=== PATIENT | female | born 1990 | race Caucasian/White ===

== ENCOUNTER 2021-11-19 23:48 | Emergency (ER) | payer SELFPAY ==
[2021-11-20 00:33] VITALS: BP 119/78; PULSE 98; TEMP 98.9; BMI 28.7
[2021-11-20] MEDS ORDERED: BISMUTH SUBSALICYLATE 524 MG/30 ML PO ONE (01:05)
[2021-11-20] MEDS ORDERED: LACTATED RINGERS SOLUTION 1000 ML INFUS.BAG IV ONE (01:06)
[2021-11-20] MEDS ORDERED: LOPERAMIDE HCL 2 MG CAPSULE PO ONE (01:06)
[2021-11-20] MEDS ORDERED: MAG HYDROX/AL HYDROX/SIMETH -MYLANTA- ORAL SUSPENSION PO ONE (01:20)
[2021-11-20] MEDS ORDERED: FAMOTIDINE 20 MG/50 ML IVPB 20 MG in PREMIX 50 IVPB ONE (01:21)
[2021-11-20] MEDS ORDERED: MAG HYDROX/AL HYDROX/SIMETH 30 ML UNIT-DOSE CUP ONE (02:20)
[2021-11-20] MEDS ORDERED: ACETAMINOPHEN 325 MG TABLET (FP) PO ONE (02:20)
[2021-11-20] MEDS ORDERED: FAMOTIDINE 20 MG/50 ML IVPB 20 MG/50 ML MG IVPB ONE (02:21)
[2021-11-20 03:07] LABS: BASO % 0.5 % (0-2.0); EOS % 0.7 % (0-4.5); HEMATOCRIT 37.8 % (32.4-45.2); HEMOGLOBIN 13.1 GM/dL (10.7-15.3); LYMPH % 19.3 % (8-40); MCH 29.8 pg (25.7-33.7); MCHC 34.8 g/dl (32.0-36.0); MEAN CELL VOLUME 85.7 fl (80-96); MEAN PLT VOLUME 7.7 fl (7.5-11.1); MONO % 6.7 % (3.8-10.2); NEUT % 72.8 % (42.8-82.8); PLATELET COUNT 305 10^3/uL (134-434); RBC 4.41 M/mm3 (3.60-5.2); RDW 13.4 % (11.6-15.6); WHITE BLOOD COUNT 7.3 K/mm3 (4.0-10.0)
[2021-11-20 03:33] LABS: CALCIUM 8.4 mg/dL (8.5-10.1)
[2021-11-20 03:34] LABS: BLOOD UREA NITROGEN 7.3 mg/dL (7-18)
[2021-11-20 03:37] LABS: CREATININE 0.7 mg/dL (0.55-1.3)
[2021-11-20 03:38] LABS: BILIRUBIN,TOTAL 0.7 mg/dL (0.2-1); TOT PROT 7.4 g/dl (6.4-8.2)
[2021-11-20] MEDS ORDERED: CALCIUM GLUCONATE 10% - 1,000 MG/10 ML VIAL IVPB ONE (03:40)
[2021-11-20] MEDS ORDERED: POTASSIUM CHLORIDE TABS 20 MEQ TABLET.ER (FP) PO ONE ×2 (03:40→05:40)
[2021-11-20] MEDS ORDERED: CALCIUM GLUCONATE 10% - 1,000 MG/10 ML VIAL ONE (05:39)
== END 2021-11-20 06:54 | disposition home or self-care (01) ==
LOC: JER 23:48
PROC: 3E033GC Introduction of Other Therapeutic Substance into Peripheral Vein, Percutaneous Approach (ICD-10-PCS; principal; 2021-11-19)
PROC: 3E033GC Introduction of Other Therapeutic Substance into Peripheral Vein, Percutaneous Approach (ICD-10-PCS; 2021-11-19)
DX: A09 Infectious gastroenteritis and colitis, unspecified (principal)
CPT/HCPCS: 36415; 80053; 85025; 99284-25

== ENCOUNTER 2022-05-03 00:33 | Emergency (ER) | payer SELFPAY ==
[2022-05-03 01:13] VITALS: BP 117/80; PULSE 86; RESP 20; TEMP 97.8; BMI 24.3
[2022-05-03] MEDS ORDERED: IBUPROFEN 400 MG TABLET (FP) PO ONE ×2 (03:07→03:11)
[2022-05-03] MEDS ORDERED: DEXAMETHASONE SOD PHOSPHATE 10 MG/1 ML VIAL IM ONE (03:08)
[2022-05-03] MEDS ORDERED: DEXAMETHASONE SOD PHOSPHATE 10 MG/1 ML VIAL ONE (03:11)
== END 2022-05-03 05:05 | disposition home or self-care (01) ==
LOC: JER 00:33
PROC: 3E0233Z Introduction of Anti-inflammatory into Muscle, Percutaneous Approach (ICD-10-PCS; principal; 2022-05-03)
DX: R09.81 Nasal congestion (principal)
CPT/HCPCS: 99284-25; J1100

== ENCOUNTER 2023-08-27 11:23 | Emergency (ER) | payer SELFPAY ==
[2023-08-27 11:32] VITALS: BP 109/69; PULSE 70; RESP 20; TEMP 97.7; BMI 27.4
[2023-08-27] MEDS ORDERED: SODIUM CHLORIDE 0.9% 500 ML INFUS.BAG IV ONE (12:55)
[2023-08-27] MEDS ORDERED: FAMOTIDINE 20 MG/50 ML IVPB 20 MG/50 ML MG IVPB ONE (12:55)
[2023-08-27] MEDS ORDERED: ACETAMINOPHEN 1000 MG/100 ML BAG IVPB ONE (12:55)
[2023-08-27] MEDS ORDERED: MAG HYDROX/AL HYDROX/SIMETH -MYLANTA- ORAL SUSPENSION PO ONE (12:55)
[2023-08-27] MEDS ORDERED: MAG HYDROX/AL HYDROX/SIMETH 30 ML UNIT-DOSE CUP ONE (13:48)
[2023-08-27] MEDS ORDERED: ACETAMINOPHEN INJECTION 100 ML IVPB ONE (13:48)
[2023-08-27] MEDS ORDERED: FAMOTIDINE 10 MG/ML VIAL IVPB ONE (13:49)
[2023-08-27 13:56] LABS: BASO % 0.8 % (0-2.0); EOS % 3.2 % (0-4.5); HEMATOCRIT 37.7 % (32.4-45.2); HEMOGLOBIN 13.2 GM/dL (10.7-15.3); LYMPH % 33.8 % (8-40); MCH 30.2 pg (25.7-33.7); MCHC 35.1 g/dl (32.0-36.0); MEAN CELL VOLUME 86.1 fl (80-96); MEAN PLT VOLUME 7.8 fl (7.5-11.1); MONO % 9.8 % (3.8-10.2); NEUT % 52.4 % (42.8-82.8); PLATELET COUNT 281 10^3/uL (134-434); RBC 4.38 M/mm3 (3.60-5.2); WHITE BLOOD COUNT 4.9 K/mm3 (4.0-10.0)
[2023-08-27 13:58] LABS: EPI CELLS >36 /uL (0-25.1); HYALINE CASTS 6 /uL (0-3.1); URINE APPEARANCE CLOUDY; URINE BACTERIA 7510 /uL (0-1359); URINE BILIRUBIN NEGATIVE (NEGATIVE); URINE COLOR YELLOW; URINE GLUCOSE (UA) NEGATIVE (NEGATIVE); URINE KETONE NEGATIVE (NEGATIVE); URINE LEUK ESTERASE NEGATIVE (NEGATIVE); URINE NITRITE NEGATIVE (NEGATIVE); URINE PROTEIN 1+ (NEGATIVE)
[2023-08-27 14:06] LABS: CHLORIDE 105 mmol/L (98-107); SODIUM 132 mmol/L (136-145)
[2023-08-27 14:07] LABS: ALBUMIN 3.5 g/dl (3.4-5.0)
[2023-08-27 14:08] LABS: CALCIUM 7.8 mg/dL (8.5-10.1); CO2 26 mmol/L (21-32); GLUCOSE,RANDOM 80 mg/dL (74-106); LIPASE 12 U/L (73-393); MAGNESIUM 2.2 mg/dL (1.8-2.4)
[2023-08-27 14:09] LABS: BLOOD UREA NITROGEN 9.9 mg/dL (7-18)
[2023-08-27 14:11] LABS: CREATININE 0.8 mg/dL (0.55-1.3); SGOT/AST 90 U/L (15-37)
[2023-08-27 14:13] LABS: BILIRUBIN,TOTAL 0.8 mg/dL (0.2-1)
[2023-08-27 14:14] LABS: ALK PHOS 49 U/L (45-117); TOT PROT 7.6 g/dl (6.4-8.2)
[2023-08-27 14:15] LABS: URINE RBC 43.2 /uL (0-23.9); URINE WBC 96.9 /uL (0-25.8)
[2023-08-27 14:37] LABS: ANION GAP 1 mmol/L (4-13); POTASSIUM 8.8 mmol/L (3.5-5.1); SGPT/ALT 29 U/L (13-61)
[2023-08-27 15:53] LABS: POTASSIUM 3.5 mmol/L (3.5-5.1)
[2023-08-27 15:54] LABS: CALCIUM 7.4 mg/dL (8.5-10.1)
[2023-08-27 15:58] LABS: CREATININE 0.6 mg/dL (0.55-1.3)
== END 2023-08-27 16:26 | disposition home or self-care (01) ==
LOC: JER 11:23
PROC: 3E033GC Introduction of Other Therapeutic Substance into Peripheral Vein, Percutaneous Approach (ICD-10-PCS; principal; 2023-08-27)
PROC: 3E033GC Introduction of Other Therapeutic Substance into Peripheral Vein, Percutaneous Approach (ICD-10-PCS; 2023-08-27)
DX: R10.84 Generalized abdominal pain (principal); R19.7 Diarrhea, unspecified
CPT/HCPCS: 36415; 80048; 80053; 81003; 83690; 83735; 84703; 85025; 87086; 87186; 99284-25

== ENCOUNTER 2024-06-30 00:33 | Emergency (ER) | payer OTHER ==
[2024-06-30 00:43] VITALS: BP 122/69; PULSE 87; RESP 18; TEMP 97.9; BMI 26.3
[2024-06-30] MEDS ORDERED: IBUPROFEN 600 MG TABLET (FP) PO ONE (01:19)
[2024-06-30] MEDS: IBUPROFEN 600 MG TABLET (FP) PO ONE (01:20)
[2024-06-30] MEDS: LIDOCAINE 4% PATCH TP ONE (01:20)
[2024-06-30] MEDS ORDERED: LIDOCAINE 4% PATCH TP ONE (01:20)
[2024-06-30 03:30] LABS: HIV INTERPRETATION NEGATIVE (NEGATIVE)
== END 2024-06-30 02:30 | disposition home or self-care (01) ==
LOC: JER 00:33
DX: M25.511 Pain in right shoulder (principal)
CPT/HCPCS: 36415; 73030-TC-RT-FY; 86803; 87389; 99284-25